=== PATIENT | female | born 1960 | race Caucasian/White ===

== ENCOUNTER 2023-03-11 11:48 | Inpatient (IN) | payer BC ==
[2023-03-11 12:29] LABS: #Eosinphils 0.1 10x3/uL (0.0-0.5); #Monocytes 0.4 10x3/uL (0.0-1.1); #Neutrophils 9.9 10x3/uL (1.5-8.4); %Basophils 0.2 % (0.0-2.0); %Eosinophils 0.4 % (0.0-6.0); %Monocytes 3.2 % (0.0-10.0); %Neutrophils 81.8 % (40.0-75.0); Hematocrit 39.2 % (34.9-44.5); Hemoglobin 13.7 g/dL (12.0-15.5); Mean Corpuscular HGB CONC 34.9 g/dL (32.0-36.0); Mean Corpuscular Hemoglobin 31.2 pg (27.0-33.0); Mean Corpuscular Volume 89.3 fl (81.6-98.3); Mean Platelet Volume 9.7 fl (7.4-10.4); Platelet Count 219 10x3/uL (150-450); RBC Distribution Width 13.2 % (11.5-14.5); Red Blood Cell (RBC) Count 4.39 10x6/uL (3.90-5.03)
[2023-03-11 12:47] LABS: ALT (SGPT) 26 U/L (8-55); AST (SGOT) 22 U/L (5-34); Albumin 4.2 g/dL (3.4-4.8); Alkaline Phosphatase 88 U/L (40-110); Anion Gap 13 mmol/L (10-20); BUN (Urea Nitrogen) 17 mg/dL (9.8-20.1); Bilirubin, Total 0.5 mg/dL (0.2-1.2); Calc. Creatinine Clearance 0 mL/min (70-130); Calcium 8.8 mg/dL (7.8-10.44); Carbon Dioxide 24 mmol/L (23-31); Chloride 108 mmol/L (98-107); Estimated GFR 77; Globulin 2.2 g/dL (2.4-3.5); Glucose 115 mg/dL (80-115); Protein, Total 6.4 g/dL (5.8-8.1); Sodium 141 mmol/L (136-145)
[2023-03-11 12:52] LABS: Troponin I Less than 0.010 ng/mL (< 0.028)
[2023-03-11] MEDS ORDERED: Ondansetron PF 4 MG/2 ML Vial IVP PRN (14:09)
[2023-03-11 15:10] VITALS: BMI 31.1
[2023-03-11 15:26] LABS: Troponin I Less than 0.010 ng/mL (< 0.028)
[2023-03-11] MEDS: Nicotine 14 MG PATCH TD SCH (16:09)
[2023-03-11] MEDS: Acetaminophen 325 MG TAB PO PRN (16:18)
[2023-03-11 18:05] LABS: Troponin I Less than 0.010 ng/mL (< 0.028)
[2023-03-11] MEDS: FLU VACC QS2023-24(6MOS UP)/PF 60 MCG/0.5 ML SYRINGE IM ONE (19:14)
[2023-03-12 03:32] LABS: #Eosinphils 0.2 10x3/uL (0.0-0.5); #Monocytes 0.7 10x3/uL (0.0-1.1); #Neutrophils 5.1 10x3/uL (1.5-8.4); %Basophils 0.3 % (0.0-2.0); %Eosinophils 1.7 % (0.0-6.0); %Lymphocytes 46.1 % (18.0-47.0); %Monocytes 6.5 % (0.0-10.0); %Neutrophils 45.2 % (40.0-75.0); Hematocrit 38.4 % (34.9-44.5); Hemoglobin 13.1 g/dL (12.0-15.5); Mean Corpuscular HGB CONC 34.1 g/dL (32.0-36.0); Mean Corpuscular Hemoglobin 30.5 pg (27.0-33.0); Mean Corpuscular Volume 89.5 fl (81.6-98.3); Mean Platelet Volume 10.2 fl (7.4-10.4); Platelet Count 233 10x3/uL (150-450); RBC Distribution Width 13.4 % (11.5-14.5); Red Blood Cell (RBC) Count 4.29 10x6/uL (3.90-5.03); White Blood Cell (WBC) Count 11.2 10x3/uL (3.5-10.5)
[2023-03-12 03:46] LABS: Anion Gap 14 mmol/L (10-20); BUN (Urea Nitrogen) 16 mg/dL (9.8-20.1); Calc. Creatinine Clearance 79 mL/min (70-130); Calcium 9.3 mg/dL (7.8-10.44); Carbon Dioxide 24 mmol/L (23-31); Cardiac Risk 4.3 (Less than 4.5); Chloride 109 mmol/L (98-107); Cholesterol 225 mg/dl (< 200 Desired); Estimated GFR 66; Glucose 94 mg/dL (80-115); HDL Cholesterol 52 mg/dL (>60 Neg Risk); LDL Cholesterol, Calculated 154 mg/dL; Potassium 3.6 mmol/L (3.5-5.1); Sodium 143 mmol/L (136-145); Triglycerides 93 mg/dL (Less than 150)
[2023-03-12] MEDS ORDERED: Electrolyte Replacement Protocol 1 EACH FS SCH (08:00)
[2023-03-12 09:47] LABS: Magnesium 2.1 mg/dL (1.6-2.6)
[2023-03-12] MEDS: Aspirin Chewable 81 MG TAB PO SCH (09:54)
[2023-03-12] MEDS: Lisinopril 20 MG TAB PO SCH ×2 (09:55→20:08)
[2023-03-12] MEDS: Amlodipine 10 MG TAB PO SCH (09:55)
[2023-03-12] MEDS: Enoxaparin 40 MG (0.4 mL) SYRINGE SC SCH (09:59)
[2023-03-12] MEDS: Ondansetron ODT 4 MG TAB PO PRN (13:37)
[2023-03-12] MEDS: traZODone HCl 50 MG TAB PO PRN (20:08)
[2023-03-13 04:25] LABS: ALT (SGPT) 20 U/L (8-55); AST (SGOT) 18 U/L (5-34); Alkaline Phosphatase 84 U/L (40-110); Anion Gap 15 mmol/L (10-20); BUN (Urea Nitrogen) 17 mg/dL (9.8-20.1); Bilirubin, Direct 0.1 mg/dL (0.1-0.3); Bilirubin, Total 0.3 mg/dL (0.2-1.2); Calc. Creatinine Clearance 88 mL/min (70-130); Calcium 9.6 mg/dL (7.8-10.44); Carbon Dioxide 22 mmol/L (23-31); Chloride 108 mmol/L (98-107); Estimated GFR 74; Glucose 83 mg/dL (80-115); Potassium 3.5 mmol/L (3.5-5.1); Protein, Total 6.5 g/dL (5.8-8.1); Sodium 141 mmol/L (136-145)
[2023-03-13 04:27] LABS: INR-International Normal Ratio 0.9; PTT 26.8 sec (22.0-33.0)
[2023-03-13] MEDS: Potassium Chloride 20 MEQ TAB PO SCH (08:48)
[2023-03-13] MEDS: Magnesium 2 GM/50 ML(in water) 2 GM in Premix 1 BAG IVPB SCH (12:21)
[2023-03-14 04:09] LABS: Anion Gap 14 mmol/L (10-20); BUN (Urea Nitrogen) 21 mg/dL (9.8-20.1); Calc. Creatinine Clearance 81 mL/min (70-130); Calcium 8.9 mg/dL (7.8-10.44); Carbon Dioxide 24 mmol/L (23-31); Chloride 106 mmol/L (98-107); Estimated GFR 67; Glucose 93 mg/dL (80-115); Magnesium 2.3 mg/dL (1.6-2.6); Potassium 3.7 mmol/L (3.5-5.1); Sodium 140 mmol/L (136-145)
[2023-03-14] MEDS ORDERED: Lidocaine 1% (PF) 30 ML VIAL ONE (08:30)
[2023-03-14] MEDS ORDERED: CEFAZOLIN 1 GM VIAL ONE (08:30)
[2023-03-14] MEDS ORDERED: Gentamicin 80 MG/2 ML VIAL ONE (08:30)
[2023-03-14] MEDS ORDERED: Midazolam HCl 2 mg/2 ml Vial ONE ×3 (12:04→12:48)
[2023-03-14] MEDS ORDERED: Iopamidol 300 61% 100 ML VIAL FS ONE (12:17)
[2023-03-14] MEDS ORDERED: Ondansetron PF 4 MG/2 ML Vial ONE (12:24)
[2023-03-14] MEDS ORDERED: Atropine Sulfate 1 mg/1 ml Vial ONE (12:24)
[2023-03-14] MEDS: Cephalexin 250 MG CAP PO SCH (21:42)
[2023-03-15 04:43] LABS: Anion Gap 15 mmol/L (10-20); BUN (Urea Nitrogen) 19 mg/dL (9.8-20.1); Calc. Creatinine Clearance 88 mL/min (70-130); Calcium 9.1 mg/dL (7.8-10.44); Carbon Dioxide 22 mmol/L (23-31); Chloride 108 mmol/L (98-107); Estimated GFR 74; Glucose 93 mg/dL (80-115); Magnesium 2.1 mg/dL (1.6-2.6); Potassium 3.8 mmol/L (3.5-5.1); Sodium 141 mmol/L (136-145)
[2023-03-15] MEDS ORDERED: traMADol HCl 50 MG TAB PO SCH (08:45)
[2023-03-15] MEDS: Ketorolac Tromethamine 10 MG TAB PO SCH (10:04)
[2023-03-15 13:16] VITALS: BP 155/79; TEMP 97.6
== END 2023-03-15 17:30 | disposition home or self-care (01) | DRG 244 ==
LOC: CSHERS 11:48 → CSHTELE 13:11 → OBSVTOIN 13:24
PROVIDERS: ADMIT Internal Medicine; ATTEND Family Medicine
PROC: 0JH606Z Insertion of Pacemaker, Dual Chamber into Chest Subcutaneous Tissue and Fascia, Open Approach (ICD-10-PCS; principal; 2023-03-14)
PROC: 02H63JZ Insertion of Pacemaker Lead into Right Atrium, Percutaneous Approach (ICD-10-PCS; 2023-03-14)
PROC: 02HK3JZ Insertion of Pacemaker Lead into Right Ventricle, Percutaneous Approach (ICD-10-PCS; 2023-03-14)
PROC: 3E0102A Introduction of Anti-Infective Envelope into Subcutaneous Tissue, Open Approach (ICD-10-PCS; 2023-03-14)
PROC: B5171ZZ Fluoroscopy of Left Subclavian Vein using Low Osmolar Contrast (ICD-10-PCS; 2023-03-14)
DX: I49.5 Sick sinus syndrome (principal); R55 Syncope and collapse; R20.2 Paresthesia of skin; I10 Essential (primary) hypertension; I25.10 Atherosclerotic heart disease of native coronary artery without angina pectoris; F17.210 Nicotine dependence, cigarettes, uncomplicated; R73.03 Prediabetes; Z82.49 Family history of ischemic heart disease and other diseases of the circulatory system; Z95.828 Presence of other vascular implants and grafts; Z95.0 Presence of cardiac pacemaker
CPT/HCPCS: 33208; 36415; 70450; 71045; 80048; 80053; 80061; 80076; 83036; 83735; 84484; 85025; 85610; 85730; 86850; 86900; 86901; 93005; 93010; 93306; 93880; 94760; 99152; 99153; C1785; C1898; J0461; J0690; J1580; J1650; J2001; J2250; J2405; J3475; Q0162; Q9967